=== PATIENT | female | born 1950 | race Two or more races ===

== ENCOUNTER 2024-07-30 12:23 | Emergency (ER) | payer OTHER ==
[2024-07-30 12:40] VITALS: BP 151/74; PULSE 68; RESP 16; TEMP 97.5; BMI 20.5
[2024-07-30 14:42] LABS: THROAT:GRP A STREP NOT DETECTED (NOTDETECTED)
== END 2024-07-30 15:31 | disposition home or self-care (01) ==
LOC: JERFT 12:23
DX: J22 Unspecified acute lower respiratory infection (principal); R05.9 Cough, unspecified; Z20.822 Contact with and (suspected) exposure to COVID-19
CPT/HCPCS: 0241U-QW; 71046-TC-FY; 87651; 99284-25